=== PATIENT | female | born 1950 | race Caucasian/White ===

== ENCOUNTER → 2018-01-11 | Outpatient (REF) | payer MEDICARE | LOC: M LAB REF 16:27 | DX: S91.002A Unspecified open wound, left ankle, initial encounter (principal); W18.30XA Fall on same level, unspecified, initial encounter; Y92.009 Unspecified place in unspecified non-institutional (private) residence as the place of occurrence of the external cause | CPT/HCPCS: 87186 ==

== ENCOUNTER → 2023-01-10 | Outpatient (REF) | payer MEDICARE ==
[2023-01-10 12:23] LABS: BLOOD UREA NITROGEN 23 MG/DL (9-23); CALCIUM LEVEL 9.3 MG/DL (8.3-10.6); CARBON DIOXIDE LEVEL 28 MMOL/L (20-31); CHLORIDE LEVEL 106 MMOL/L (98-107); CREATININE FOR GFR 0.72 MG/DL (0.55-1.30); GLOMERULAR FILTRATION RATE > 60.0 (>39); GLUCOSE, FASTING 108 MG/DL (74-106); POTASSIUM SERUM 4.1 MMOL/L (3.5-5.1); SODIUM LEVEL 140 MMOL/L (136-145)
== END ==
LOC: M LABDRAWC 11:13
PROVIDERS: ATTEND Internal Medicine Endocrinology, Diabetes & Metabolism
DX: E11.65 Type 2 diabetes mellitus with hyperglycemia (principal)

== ENCOUNTER → 2023-03-29 | Outpatient (REF) | payer MEDICARE ==
[2023-03-30 14:30] LABS: % LABILE ALKALINE PHOSPHATASE 27.7 %
== END ==
LOC: M LAB REF 12:21
PROVIDERS: ATTEND Internal Medicine
DX: R79.89 Other specified abnormal findings of blood chemistry (principal)

== ENCOUNTER → 2023-04-11 | Outpatient (CLI) | payer MEDICARE | LOC: M WHC 08:19 | PROVIDERS: ATTEND Internal Medicine | DX: Z12.31 Encounter for screening mammogram for malignant neoplasm of breast (principal); R74.8 Abnormal levels of other serum enzymes ==

== ENCOUNTER → 2024-01-26 | Outpatient (REF) | payer MEDICARE ==
[2024-01-31 12:03] LABS: T P ELECTROPHORESIS SO 6.9 g/dL (6.1-8.1)
== END ==
LOC: M LAB REF 11:40
PROVIDERS: ATTEND Internal Medicine
DX: R74.8 Abnormal levels of other serum enzymes (principal)

== ENCOUNTER → 2024-01-30 | Outpatient (REF) | payer MEDICARE ==
[2024-01-31 13:27] LABS: PROTEIN CREATININE RATIO 134 mg/g creat (24-184); T PROTEIN CREATININE RATIO 0.134 (0.024-0.184); UPEP CREATININE 82 mg/dL (20-275); UPEP TOTAL PROTEIN 11 mg/dL (5-24)
== END ==
LOC: M LAB REF 11:44
PROVIDERS: ATTEND Internal Medicine
DX: R74.8 Abnormal levels of other serum enzymes (principal); Q78.2 Osteopetrosis; E78.5 Hyperlipidemia, unspecified

== ENCOUNTER → 2025-02-26 | Outpatient (REF) | payer MEDICARE | LOC: M SFHCDERM 17:54 | PROVIDERS: ATTEND Physician Assistant | DX: D09.9 Carcinoma in situ, unspecified (principal) ==

== ENCOUNTER → 2025-04-29 | Outpatient (CLI) | payer MEDICARE | LOC: M WHC 09:10 | PROVIDERS: ATTEND Internal Medicine | DX: M81.0 Age-related osteoporosis without current pathological fracture (principal) ==